=== PATIENT | male | born 1990 | race Caucasian/White ===

== ENCOUNTER 2024-01-18 05:34 | Emergency (ER) | payer BC | END 2024-01-18 07:10 | disposition home or self-care (01) | LOC: JD.ED 05:34 | DX: G89.29 Other chronic pain (principal); M25.561 Pain in right knee; F17.210 Nicotine dependence, cigarettes, uncomplicated; Z86.16 Personal history of COVID-19 | CPT/HCPCS: 73562-26-RT; 73562-RT; 99283 ==